=== PATIENT | female | born 1965 | race Caucasian/White ===

== ENCOUNTER 2017-12-15 14:53 | Emergency (ER) | payer OTHER, SELFPAY ==
[2017-12-15 14:55] VITALS: BP 161/92; PULSE 84; RESP 18; TEMP 36.3; O2SAT 98; BMI 40.0
--- NOTE | 2017-12-15 15:32 | ED.VISSUMM ---
- ER Visit Summary Date of Service: 12/15/17 Chief Complaint: Right lateral mid back pain History of Present Illness: The patient is a 52 F past medical history of borderline diabetes and hypothyroidism. Patient never had any back surgery. Today was working as a [email or web address] they were pushing a cleaning linen cart that was full of cleaning and laundry. It started to tip over and they were trying to write it and she injured her right lateral mid back. No prior back history of back surgery. She states she felt fine before this. Several hours later she started having tightness and pain in her right lateral back. Worse with movement. She denies any chest or abdominal pain. She denies any other symptoms. No weakness in her upper or lower extremities nor any numbness. Physical Examination: Middle-aged female vital signs are stable afebrile. HEENT exam unremarkable. Neck nontender. Lungs clear to auscultation bilaterally. Heart regular rate and rhythm no murmur. Chest nontender. Abdomen obese but soft and nontender. Normal bowel sounds no peritoneal signs. Moving all 4 extremities. Neurovascular intact. 5 out of 5 credit verification clerk strength. Dorsi plantar flexion intact. Normal motor strength and sensation of both lower extremities. No cauda equina or saddle anesthesia. The cervical, thoracic and lumbar spine nontender. She does have reproducible soft tissue tenderness of the right lateral parathoracic musculature with associated muscle spasm. There are no signs of bruising or trauma. Neurologically she is awake alert with no focal motor or sensory deficits. Normal motor strength and sensation about the upper and lower extremities. Test Results: None Emergency Department Course and Treatment: Patient will be treated with IM Toradol and 1 p.o. Valium for muscle relaxation. She has a ride home. Treatment Plan: Motrin for pain and inflammation. Valium for muscle relaxation. Disposition: Discharge Impression: Right mid back strain with muscle spasm This note was generated with [employer] dictation software. It may contain incorrect words, spelling, and punctuation that were not noted in review of the chart prior to signing ED Disposition - Plan for ED Patient: Chief Complaint: Back Referrals: Natacha Clay MD [Primary Care Provider] -
[2017-12-15] MEDS: diazePAM 5 MG Tablet 10 MG PO (15:39)
[2017-12-15] MEDS: Ketorolac 60 MG/2 ML Vial IM (15:39)
--- NOTE | 2017-12-15 15:41 | ED.DCSUM_ITS ---
- ER Visit Summary Date of Service: 12/15/17 Chief Complaint: Right lateral mid back pain History of Present Illness: The patient is a 52 F past medical history of borderline diabetes and hypothyroidism. Patient never had any back surgery. Today was working as a [employer] they were pushing a cleaning linen cart that was full of cleaning and laundry. It started to tip over and they were trying to write it and she injured her right lateral mid back. No prior back history of back surgery. She states she felt fine before this. Several hours later she started having tightness and pain in her right lateral back. Worse with movement. She denies any chest or abdominal pain. She denies any other symptoms. No weakness in her upper or lower extremities nor any numbness. Physical Examination: Middle-aged female vital signs are stable afebrile. HEENT exam unremarkable. Neck nontender. Lungs clear to auscultation bilaterally. Heart regular rate and rhythm no murmur. Chest nontender. Abdomen obese but soft and nontender. Normal bowel sounds no peritoneal signs. Moving all 4 extremities. Neurovascular intact. 5 out of 5 rod finisher strength. Dorsi plantar flexion intact. Normal motor strength and sensation of both lower extremities. No cauda equina or saddle anesthesia. The cervical, thoracic and lumbar spine nontender. She does have reproducible soft tissue tenderness of the right lateral parathoracic musculature with associated muscle spasm. There are no signs of bruising or trauma. Neurologically she is awake alert with no focal motor or sensory deficits. Normal motor strength and sensation about the upper and lower extremities. Test Results: None Emergency Department Course and Treatment: Patient will be treated with IM Toradol and 1 p.o. Valium for muscle relaxation. She has a ride home. Treatment Plan: Motrin for pain and inflammation. Valium for muscle relaxation. Disposition: Discharge Impression: Right mid back strain with muscle spasm This note was generated with [employer] dictation software. It may contain incorrect words, spelling, and punctuation that were not noted in review of the chart prior to signing ED Disposition - Plan for ED Patient: Chief Complaint: Back Referrals: Natacha Clay MD [Primary Care Provider] -
--- NOTE | 2017-12-15 15:41 | ED.DEP ---
ED Disposition - Plan for ED Patient: Disposition: Home or Assisted Living Chief Complaint: Back Instructions: ED Spasm Muscle Prescriptions: Diazepam [Valium] 10 mg PO TID #15 tab Referrals: Natacha Clay MD [Primary Care Provider] - As Needed [facility] [GROUP OF PHYSICIANS] - As soon as possible Additional Instructions: Hot shower, warm bath, and massage for back spasm. Valium for muscle spasm. Motrin for pain and inflammation. Light duty until pain-free.
[2017-12-15 16:39] VITALS: BP 139/79; PULSE 84; RESP 18
== END 2017-12-15 16:30 | disposition home or self-care (01) ==
PROVIDERS: Emergency Provider Emergency Medicine; Family Provider Internal Medicine; PCP Internal Medicine
DX: S29.012A Strain of muscle and tendon of back wall of thorax, initial encounter (principal); M62.830 Muscle spasm of back; X50.1XXA Overexertion from prolonged static or awkward postures, initial encounter; Y93.E2 Activity, laundry; Y92.214 College as the place of occurrence of the external cause; Y99.0 Civilian activity done for income or pay; E03.9 Hypothyroidism, unspecified; Z79.899 Other long term (current) drug therapy
CPT/HCPCS: 96374; 99284

== ENCOUNTER 2020-05-25 09:53 | Emergency (ER) | payer OTHER, SELFPAY ==
[2020-05-25 09:53] VITALS: BP 155/100; PULSE 86; RESP 15; TEMP 36.3; O2SAT 99; BMI 35.6
--- NOTE | 2020-05-25 10:17 | ED.VISSUMM ---
- ER Visit Summary Date of Service: 05/25/20 Chief Complaint: Nearly passed out at work due to right lower back pain History of Present Illness: The patient is a 54 F history of hypothyroidism and prediabetes. Prior appendectomy, cholecystectomy and hysterectomy. Patient's had a cervical fusion but no low back surgery. States that for the last month she has had low back pain. Primary care physician put her on a muscle relaxant and a Medrol Dosepak. Said initially got better but she does a lot of bending, stooping and lifting at work and she aggravated over the last couple weeks. States today she got an episode of the pain with movement and she felt like she was going to pass out. No loss of conscious. And so that was only for a brief episode. She denies any abdominal pain. She denies any weakness or numbness to her lower extremities. No bowel or bladder incontinence. No dysuria. It is worse with movement and primarily lifting her right leg. Physical Examination: Middle-aged female. Sitting she seemed reasonably comfortable when she got up to transfer the bed and lay down it aggravated her pain. Vital signs are stable afebrile. H EENT exam unremarkable. Neck nontender. Lungs clear to auscultation bilaterally. Heart regular rhythm no murmur. Rate about 85. Abdomen soft nontender normal bowel sounds no peritoneal signs. No pulsatile mass. Patient is moving all 4 extremities. They are neurovascularly intact. She has 5-5 inside sales recruiter strength. Dorsi and plantar flexion are intact. She has normal sensation lower extremities. No cauda equina. No saddle anesthesia. Negative straight leg raise on the left but positive straight leg raise on the right at 15 to 30 degrees. Back exam spine is nontender she has exquisite tenderness to her right SI joint. Left is nontender. Neurologically she is awake and alert again with no focal motor or sensory deficits. No cauda equina. Test Results: None Emergency Department Course and Treatment: Patient has a ride home. She will be given 2 [place] here for pain. Placed on a Medrol Dosepak. Use anti-inflammatories for pain. Treatment Plan: Medrol Dosepak. Motrin as needed. Follow-up with your doctor if not improving. Disposition: Discharge Impression: Acute right-sided sciatica Near syncope secondary to back pain This note was generated with [employer] software. It may contain incorrect words, spelling, and punctuation that were not noted in review of the chart prior to signing ED Disposition - Plan for ED Patient: Referrals: Natacha Clay MD [Primary Care Provider] -
--- NOTE | 2020-05-25 10:20 | ED.DEP ---
ED Disposition - Plan for ED Patient: Disposition: Home or Assisted Living Instructions: ED Sciatica Prescriptions: MethylPREDNISolone DosePak [Medrol DosePak] 4 mg PO UD #1 box Prescription Printed Referrals: Natacha Clay MD [Primary Care Provider] - 1 Week if not improving Additional Instructions: Ice to right sciatica. Motrin for pain and inflammation as needed. Medrol Dosepak. Follow-up with your doctor if not improving. Return to the emergency department if you develop bowel or bladder incontinence or weakness in your lower extremities. Lifting restrictions and bending restrictions at work.
[2020-05-25] MEDS: HYDROcodone Bitartrate/Apap 5/325 Tablet PO (10:36)
[2020-05-25 10:37] VITALS: PULSE 89; O2SAT 99
== END 2020-05-25 10:46 | disposition home or self-care (01) ==
LOC: ED 10:35
PROVIDERS: Emergency Provider Emergency Medicine; PCP Internal Medicine
DX: M54.41 Lumbago with sciatica, right side (principal); R55 Syncope and collapse; E03.9 Hypothyroidism, unspecified; Z98.1 Arthrodesis status
CPT/HCPCS: 99282

== ENCOUNTER 2022-05-25 14:24 | Emergency (ER) | payer BC, SELFPAY ==
[2022-05-25 14:28] VITALS: BP 143/99; PULSE 78; RESP 16; TEMP 36.2; O2SAT 100; BMI 32.1
[2022-05-25 14:32] VITALS: BP 130/86; PULSE 68; RESP 16; TEMP 36.8; O2SAT 99
--- NOTE | 2022-05-25 14:36 | RAD_ITS ---
INDICATION: FEVER EXAMINATION/TECHNIQUE: X-RAY - XR Chest 1 View COMPARISON: None. FINDINGS: LINES/DEVICES: None. LUNGS: No consolidation, edema or effusion. No pneumothorax. MEDIASTINUM AND CARDIOVASCULAR STRUCTURES: Cardiac silhouette not enlarged. Central airways and mediastinal contour are unremarkable. BONES AND SOFT TISSUES: Unremarkable. RAD/Chest 1 View IMPRESSION: No radiographic evidence of acute cardiopulmonary disease. Electronically Signed: Caro Ferris MD at 16:14 EST Reading Location ID and State: [id number] / Tel , Service support ,
[2022-05-25 15:28] LABS: Absolute Lymphocyte Count 2.44 X10^3/uL (0.83-4.51); Absolute Neutrophil Count 5.5 X10^3/uL (2.0-7.7); Basophil# 0.07 X10^3/uL; Basophil% 0.8 % (0-1); Eosinophil# 0.22 X10^3/uL; Eosinophils% 2.5 % (0-5); Hematocrit 44.6 % (37-47); Hemoglobin 14.9 g/dL (12.0-15.0); Lymphocyte # 2.44 X10^3/ul (0.83-4.51); Lymphocyte % 27.2 % (19-41); Mean Corp Hgb Conc 33.4 g/dL (32-36); Mean Corpuscular Hgb 29.9 pg (27.0-32.0); Mean Corpuscular Volume 89.6 fL (81-99); Mean Platelet Vol. 10.8 fl (6.2-12.0); Monocyte# 0.71 X10^3/uL; Monocyte% 7.9 % (0-10); NRBC Flagged by Analyzer 0 % (0-5); Neutrophil # 5.51 X10^3/uL (2.7-7.7); Neutrophil % 61.4 % (47-70); Platelet Count 286 K/mm3 (150-450); RBC Distribution Width CV 11.9 % (11.6-14.6); RBC Distribution Width SD 38.9 fl (35.1-43.9); Red Blood Count 4.98 M/mm3 (4.2-5.4)
[2022-05-25 15:32] VITALS: BP 128/84; PULSE 72; RESP 18; TEMP 36.7; O2SAT 98
[2022-05-25 15:55] LABS: Anion Gap 10 (5-15); BUN 16 mg/dL (7-18); BUN/Creat Ratio 20.3 RATIO (10-20); Calcium,Total 9.4 mg/dL (8.5-10.1); Chloride 105 mmol/L (98-107); Creatinine, Serum 0.79 mg/dL (0.55-1.02); EST Glomerular Filtration Rate 80 mL/min (>60); Est Glom Filt Rate - Afr Amer 97 mL/min (>60); Estimated Creatinine Clearance 64.39 ml/min; Glucose 109 mg/dL (74-106); Potassium 3.7 mmol/L (3.5-5.1); Sodium Level 139 mmol/L (136-145)
[2022-05-25 16:32] VITALS: BP 132/86; PULSE 80; RESP 16; TEMP 36.7; O2SAT 99
--- NOTE | 2022-05-25 16:53 | EX.ED.DYSGE1 ---
HPI History of Present Illness Chief Complaint: General Illness Informant: patient Onset/Context/Timing Onset: Yesterday Context: Gradual Onset Timing: Continuous Quality: Lightheaded, heaviness, aching Location: Generalized Worsened by: Movement, ambulation Relieved by: Nothing Narrative Narrative: Presents with body aches, fatigue, and lightheadedness that has been getting worse since yesterday. Patient states it is gradually getting worse. Patient states she feels lightheaded. Patient states she feels heavy all over. Patient also admits to some generalized aching. Patient states her symptoms are worse with ambulation and movement of her legs. Patient admits to subjective fevers and subjective chills. Patient admits to a cough and some slight shortness of breath. Patient admits to nausea but denies any vomiting. [facility] Medical History Chronic neck and back pain shoulder pain Home Medications levothyroxine 75 mcg tablet 75 mcg PO DAILY thyroid 12/16/15 [History Last Taken 01/05/17] cholecalciferol (vitamin D3) 50 mcg (2,000 unit) tablet 50 mcg PO DAILY 05/25/22 [History Last Taken Unknown] fexofenadine 60 mg tablet 1 mg PO DAILY 05/25/22 [History Last Taken Unknown] Allergy/AdvReac Type Severity Reaction Status Date / Time sulfamethoxazole Allergy Unknown Unknown Verified 05/25/22 14:26 [From Bactrim] trimethoprim [From Bactrim] Allergy Unknown Unknown Verified 05/25/22 14:26 piperacillin [From Zosyn] AdvReac Mild Rash Verified 05/25/22 14:26 tazobactam [From Zosyn] AdvReac Mild Rash Verified 05/25/22 14:26 Social History Smoking Status: Never smoker ROS ROS ED Constitutional Constitutional ED: Reports fever(s) and subjective; Denies chills Eyes Eyes: Denies blurry vision or change in vision ENT ENT ED: Denies rhinorrhea or sore throat Cardiovascular Cardiovascular: Denies chest pain or palpitations Respiratory/Chest Respiratory/Chest: Reports cough and dyspnea Gastrointestinal Gastrointestinal: Reports nausea; Denies vomiting Genitourinary Genitourinary ED: Denies dysuria or hematuria Musculoskeletal Musculoskeletal: Reports back pain and neck pain Integumentary Denies abscess or rash Neurologic Neurologic: Reports headache(s); Denies weakness Allergic/Immunologic Allergic/Immunologic ED: Denies mouth swelling or urticaria EXAM Physical Exam Const Vital Signs: 05/25/22 14:28 05/25/22 16:49 05/25/22 14:32 Temperature 97.2 F L 98.3 F Temperature Source Temporal Temporal Pulse Rate 78 68 Respiratory Rate 16 16 Respiratory Effort Normal Non-Labored Respiratory Pattern Normal Blood Pressure 143/99 H 130/86 H Blood Pressure Mean 113 100 Pulse Ox 100 99 Oxygen Delivery Method Room Air Room Air 05/25/22 15:32 05/25/22 16:32 05/25/22 17:00 Temperature 98.0 F 98.1 F 98.3 F Temperature Source Temporal Temporal Temporal Pulse Rate 72 80 66 Respiratory Rate 18 16 18 Respiratory Effort Respiratory Pattern Blood Pressure 128/84 H 132/86 H 146/76 H Blood Pressure Mean 98 101 99 Pulse Ox 98 99 98 Oxygen Delivery Method Room Air Room Air Room Air 05/25/22 18:04 Temperature Temperature Source Pulse Rate Respiratory Rate Respiratory Effort Respiratory Pattern Blood Pressure 149/82 H Blood Pressure Mean 104 Pulse Ox 99 Oxygen Delivery Method Room Air Positive well nourished and well developed General Appearance ED: well developed and NAD HEENT Reports moist mucous membranes Neck supple and no JVD Resp normal respiratory effort and clear to auscultation bilaterally Cardio regular rate, regular rhythm and no murmurs GI normal to inspection, nondistended, normoactive bowel sounds and non-tender Palpation: soft Extremity normal to inspection General Extremety ED: Negative for edema or tenderness General Extremity: Negative for edema Neuro oriented x3, CN's II-XII intact bilaterally and no sensory deficits noted Sensorium / Orientation: alert Motor Exam: strength 5/5 throughout Psych mental status grossly normal Skin no rashes or lesions noted MDM MDM MDM Narrative Medical decision making narrative: Patient was given IV fluids. CBC was within normal limits. Basic metabolic profile was within normal limits. Portable 1 view chest x-ray was obtained. On my interpretation, lung waddell are clear. There is normal cardiac silhouette. Bony thorax is normal. There is no acute process noted. Radiologist also interpreted the x-ray and agrees. COVID-19 rapid antigen was obtained and was negative. Influenza A and influenza B rapid antigens were obtained and were negative. Patient is feeling better on reevaluation. Patient was advised of her findings. Patient was instructed to drink plenty of fluids. Patient was instructed to take Tylenol or ibuprofen as needed for any pain or fevers. Patient was instructed to follow-up with her primary care physician in 5 to 7 days. Patient understood and was agreeable with the plan. All questions were answered. Lab Data Attestation: I reviewed the patient's lab results. Labs: Laboratory Results - last 24 hr 05/25/22 05/25/22 15:22 15:22 WBC 9.0 RBC 4.98 Hgb 14.9 Hct 44.6 MCV 89.6 MCH 29.9 MCHC 33.4 RDW Std Deviation 38.9 RDW Coeff of Andrey 11.9 Plt Count 286 MPV 10.8 Immature Gran % (Auto) 0.200 Neut % (Auto) 61.4 Lymph % (Auto) 27.2 Clinch % (Auto) 7.9 Eos % (Auto) 2.5 Baso % (Auto) 0.8 Absolute Neuts (auto) 5.5 Absolute Lymphs (auto) 2.44 Nucleated RBC % 0 Sodium 139 Potassium 3.7 Chloride 105 Carbon Dioxide 24.0 Anion Gap 10 BUN 16 Creatinine 0.79 Estim Creat Clear Calc 64.39 Est GFR (MDRD) Af Amer 97 Est GFR (MDRD) Non-Af 80 BUN/Creatinine Ratio 20.3 H Glucose 109 H Calcium 9.4 Radiography Chest X-Ray - ED: 1 View, Read by ED Physician, Read by Radiologist and No Acute Disease Diagnostic Testing: Clinical Impression(s) from Imaging Studies Chest X-Ray 05/25/22 14:36 IMPRESSION: No radiographic evidence of acute cardiopulmonary disease. Electronically Signed: Caro Ferris MD at 16:14 EST Reading Location ID and State: [id number] / Tel , Service support , Discharge Plan Triage Chief Complaint: General Illness ED Provider: Gordo Lucas Dx/Rx/DC Orders Clinical Impression: Viral illness Instructions: ED Viral Syndrome (Adult) Prescriptions: No Action levothyroxine 75 MCG tablet 75 mcg PO DAILY fexofenadine 60 mg tablet 1 mg PO DAILY Label Comments: TAKE 1 TABLET BY MOUTH ONCE DAILY cholecalciferol (vitamin D3) 50 mcg (2,000 unit) tablet 50 mcg PO DAILY Label Comments: TAKE 1 TABLET BY MOUTH ONCE DAILY Stand Alone Forms: ED Work / School Excuse Primary Care Provider: Natacha Clay Referrals: Natacha Clay MD [Primary Care Provider] - 5-7 Days Disposition Disposition: Home, Self Care
[2022-05-25 17:00] VITALS: BP 146/76; PULSE 66; RESP 18; TEMP 36.8; O2SAT 98
[2022-05-25] MEDS: Ondansetron 4 MG/2 ML Vial IV (17:02)
[2022-05-25] MEDS: Morphine 4 MG/ML Syringe IV (17:02)
[2022-05-25] MEDS: 0.9% Normal Saline 1,000 ML 1000 ML IV ×2 (17:02→17:56)
[2022-05-25 18:04] VITALS: BP 149/82; O2SAT 99
== END 2022-05-25 19:44 | disposition home or self-care (01) ==
PROVIDERS: Emergency Provider Emergency Medicine; PCP Internal Medicine; Visit Provider Emergency Medicine
DX: B34.9 Viral infection, unspecified (principal); R11.0 Nausea; R06.02 Shortness of breath; R42 Dizziness and giddiness; G89.29 Other chronic pain; M54.9 Dorsalgia, unspecified; M54.2 Cervicalgia; R05.9 Cough, unspecified; Z20.822 Contact with and (suspected) exposure to COVID-19; Z79.890 Hormone replacement therapy; Z79.899 Other long term (current) drug therapy
CPT/HCPCS: 71045; 80048; 85025; 87428; 87804; 96361; 96374; 96375; 99283; J7030; A4216; J2405

== ENCOUNTER 2022-11-22 17:00 | Outpatient (RCR) | payer BC, SELFPAY ==
--- NOTE | 2022-11-09 12:28 | HP.PTEVAL_ITS ---
Patient's Visit Information LILLIAN FRIED is a 57 year old F referred to Physical Therapy by Tayo Pearce PA-C with a diagnosis of RIGHT KNEE TENDONITIS ,UNILATERALPRIMARY OA RIGHT KNEE. Date of Evaluation: 11/09/22 Physical Therapist: Rob Bunn, PT, Cert MDT, OCS - Visit Plan Frequency: 2-3x /Week Duration: 4-6 Weeks Plan: PT INTERVTIONS ROM/FLEXABLITY RIGHT KNEE ,STRENGTHENING EX'S QUADS/HAMS/HIP/,FUNCTIONAL STRENGTHGENING AND MODALTIES FOR PAIN - Subjective This 57 y/o female presents to physical therapy with right knee pain. Patient injury September noticed pain moving a crate and felt pop and made symptoms with patient unable to ambulate for 3 days. But prior to the injury had pain possible using kneeling walker due to surgery last year Jun [address] Trujillo orthopedics MRI and x-rays showed slight meniscus tear and DJD. Patient had edema in knee . Aggravating factors unable to squat/kneel ,difficulty with steps one step at time. Pain worsens with walking/standing. Dr hull patient on leave from work return to date is October 27. Pain located medial knee and superior knee. Alleviating heat. Patient denies paresthesia/ tingling. Pain doesnt affects sleeping. Patient goals to decrease pain. Patient pain and condition affects QOL and job demnads. SOCIAL: . VOACTION: [employer] - Pain Right Knee Pain Intensity (Out of 10): 3 Pain Intensity Range: 10 - Objective POSTURE: mild forward posture hip/knee flexed right. NEURO: intact denies paresthesia/tingling. GAIT: reciprocal pattern with antalgic gait right with decrease stance with slow denis. PALAPTION: medial/lateral joint line. EDEMA: mil effusion knee. AROM: 5-90 degrees supine knee flexion. MMT: ( peak force) quads 14.4 ,hamstrings 15.6.hip flexion 19.9 ,hip abd 12,2. STAIRS: one step at time with rail. MMT: - Special Tests R Knee Saqib - Meniscus: Positive R Knee Yolie - ACL: Negative R Knee Valgus - MCL: Positive R Knee Varus - LCL: Positive - Balance/Special Test Scores Lower Extremity Functional Score: 29 - Goals Goal 1:: Patient to be I with HEP for right knee Goal Time Frame: 4-6 Weeks Goal 2:: Patient to demonstrate 50% improvement with increase function and less pain Goal Time Frame: 4-6 Weeks Goal 3:: Patient improve AROM right knee supine flexion to 0-115 degrees Goal Time Frame: 4-6 Weeks Goal 4:: Patient increase peak force MMT by 5-10 quads/hams to improve function and gait Goal Time Frame: 4-6 Weeks Goal 5:: Patient improve LFES score by 5-10 points to improve function and QOL Goal Time Frame: 4-6 Weeks Goal 6:: Patient to normalize gait - Rehabilitation Potential Physical Therapy Diagnosis: This patient injury to right knee pain with slight meniscus tear ,DJD with decrease ROM ,weakness ,antalgic gait and unable to RTW and affects housework tasks and ADL's thus benefit from skilled PT Rehabilitation Potential: Good - Anticipated Interventions Patient/Client Instruction: Educate patient on: Condition, Plan of Care For the Purpose of:: To decrease pain, To increase ROM, To improve muscle performance and motor function, To increase tolerance to activity/condition/position, To improve ability of physical actions for home/community/work/leisure, To improve gait and locomotor functions, To improve health of tissue, To decrease soft tissue restriction, To increase flexibility/ROM, To reduce risk of recurrence, To improve ability to perform tasks related to life management Therapeutic Exercise to Include: Strength training, Endurance training, Flexibilty training, Gait and locomotor training, Passive ROM, Active ROM For the Purpose of:: To decrease pain, To increase ROM, To improve muscle performance and motor function, To increase tolerance to a ctivity/condition/position, To improve ability of physical actions for home/community/work/leisure, To improve health of tissue, To decrease soft tissue restriction, To increase flexibility/ROM TENS: Yes IF ES: Yes Cryotherapy (ice pack, ice massage): Yes Thermo therapy (hot pack): Yes Ultrasound (thermal/non thermal): Yes For the Purpose of:: To decrease pain, To decrease swelling/inflammation, To increase ROM, To improve health of tissue, To decrease soft tissue restriction Thank you for the opportunity to evaluate your patient. For Medicare and Medicare HMO plans, please review the plan of care and approve it. It will need to be FAXED BACK to us at [phone] for Medicare purposes. For Medicare only, by signing this I certify the plan of care. Please let me know if there are questions or concerns regarding this plan of care. Physician Signature: Date:
--- NOTE | 2023-02-20 11:02 | HP.PT.NRP ---
Patient Information Patient Information: LILLIAN FRIED was seen in my office for initial evaluation on 11/09/22. The following Plan of Care was established for this patient: POC Established Initial Frequency: 2-3x /Week Initial Duration: 4-6 Weeks Anticipated Interventions Patient/Client Instruction: Educate patient on: Condition and Plan of Care For the Purpose of:: To decrease pain, To increase ROM, To improve muscle performance and motor function, To increase tolerance to activity/condition/position, To improve ability of physical actions for home/community/work/leisure, To improve gait and locomotor functions, To improve health of tissue, To decrease soft tissue restriction, To increase flexibility/ROM, To reduce risk of recurrence and To improve ability to perform tasks related to life management Therapeutic Exercise to Include: Strength training, Endurance training, Flexibilty training, Gait and locomotor training, Passive ROM and Active ROM For the Purpose of:: To decrease pain, To increase ROM, To improve muscle performance and motor function, To increase tolerance to activity/condition/position, To improve ability of physical actions for home/community/work/leisure, To improve health of tissue, To decrease soft tissue restriction and To increase flexibility/ROM TENS: Yes IF ES: Yes Cryotherapy (ice pack, ice massage): Yes Thermo therapy (hot pack): Yes Ultrasound (thermal/non thermal): Yes For the Purpose of:: To decrease pain, To decrease swelling/inflammation, To increase ROM, To improve health of tissue and To decrease soft tissue restriction Last Seen Last Seen: This patient was last seen in our office . Pertinent comments regarding their Physical therapy will appear below: Patient seen for PT for knee pain ,had MRI then surgery d/c At this point I will be discontinuing this patient from physical therapy. I would be happy to see this patient again in the future if found appropriate by the physician. Thank you! Rob Bunn, PT, Cert MDT, OCS Balance/Gait/Functional tests Balance/Special Test Scores Lower Extremity Functional Score: 29
== END 2022-11-22 19:00 | disposition home or self-care (01) ==
LOC: PT 17:00
PROVIDERS: PCP Internal Medicine; Referring Provider Physician Assistant; Visit Provider Physician Assistant
DX: M76.51 Patellar tendinitis, right knee (principal); M17.11 Unilateral primary osteoarthritis, right knee
CPT/HCPCS: 97014; 97110; 97162; G0283

== ENCOUNTER → 2022-11-30 | Outpatient (CLI) | payer BC, SELFPAY ==
--- NOTE | 2022-11-30 11:55 | EKG12_ITS ---
Test Reason : PRE OP Blood Pressure : / mmHG Vent. Rate : 065 BPM Atrial Rate : 065 BPM P-R Int : 144 ms QRS Dur : 064 ms QT Int : 382 ms P-R-T Axes : 071 -09 -01 degrees QTc Int : 397 ms Normal sinus rhythm Normal ECG Confirmed by DAVON MANN, PRISCILA ([id number]), legal editor JEANCARLOS JAMISON ([id number]) on 12/01/2022 8:12:04 AM Referred By: Richie Michelle Confirmed By:PRISCILA MAYS MD
[2022-11-30 12:33] LABS: Absolute Lymphocyte Count 2.26 X10^3/uL (0.83-4.51); Absolute Neutrophil Count 4.5 X10^3/uL (2.0-7.7); Basophil# 0.07 X10^3/uL; Basophil% 0.9 % (0-1); Eosinophils% 1.3 % (0-5); Hematocrit 42.6 % (37-47); Hemoglobin 14.3 g/dL (12.0-15.0); Lymphocyte # 2.26 X10^3/ul (0.83-4.51); Lymphocyte % 29.8 % (19-41); Mean Corp Hgb Conc 33.6 g/dL (32-36); Mean Corpuscular Volume 92.2 fL (81-99); Mean Platelet Vol. 10.7 fl (6.2-12.0); Monocyte# 0.65 X10^3/uL; Monocyte% 8.6 % (0-10); NRBC Flagged by Analyzer 0 % (0-5); Neutrophil # 4.46 X10^3/uL (2.7-7.7); Neutrophil % 58.9 % (47-70); Platelet Count 282 K/mm3 (150-450); RBC Distribution Width CV 12.2 % (11.6-14.6); RBC Distribution Width SD 41.2 fl (35.1-43.9); Red Blood Count 4.62 M/mm3 (4.2-5.4); White Blood Count 7.6 K/mm3 (4.4-11.0)
[2022-11-30 13:01] LABS: Anion Gap 7 (5-15); BUN 18 mg/dL (7-18); BUN/Creat Ratio 24.2 RATIO (10-20); Calcium,Total 9.3 mg/dL (8.5-10.1); Chloride 105 mmol/L (98-107); Creatinine, Serum 0.74 mg/dL (0.55-1.02); EST Glomerular Filtration Rate 86 mL/min (>60); Est Glom Filt Rate - Afr Amer 104 mL/min (>60); Glucose 86 mg/dL (74-106); Sodium Level 139 mmol/L (136-145)
== END | disposition home or self-care (01) ==
LOC: PSN 11:53
PROVIDERS: PCP Internal Medicine; Referring Provider Student in an Organized Health Care Education/Training Program; Visit Provider Student in an Organized Health Care Education/Training Program
DX: Z01.818 Encounter for other preprocedural examination (principal)
CPT/HCPCS: 36415; 80048; 85025; 93005

== ENCOUNTER 2023-02-09 12:30 | Outpatient (RCR) | payer BC, SELFPAY ==
--- NOTE | 2023-01-04 14:55 | HP.PTEVAL ---
Patient's Visit Information Visit Information Visit Information: LILLIAN FRIED is a 57 year old F referred to Physical Therapy by Dr. Richie Michelle, DO with a diagnosis of Right Meniscal Repair 12/06/22. Date of Evaluation: 01/04/23 Physical Therapist: Anita Mcarthur DPT Visit Plan Frequency: 2-3x /Week Duration: 3 Months Plan: Hold until WB then 2-3x a week for 4-6 weeks- Meniscal Repair. HEP Given IE: bolster extn supine and seated, heel slide seated and supine, quad set and TKE- educated on brace mgmt Subjective Subjective: Been off work since May- right foot surgery fusion of great toe Dr. Johnson- went back to work for 2 weeks and torn meniscus. Dr. Michelle did a meniscal repair December 06, 2022. She has been non weightbearing since. She went and saw him last week and he told her to continue to be NWB and start proacting the bend and start PT. She goes back to see him at the end of the month. He told her to try to bend it to 90 degrees. She has the brace unlocked when she is sitting and also takes it off when she is sitting as well. When she is up and moving she has it locked into extension. Sleep she still has it locked. She is okay as long as she is moving it slowly. Worst in the last 48 hours: 3/10 achy and more uncomfortable. Best: 0/10 Eases: ice, elevation and Tylenol. She is doing straight leg raises and working on bending it when sitting. No N/T in the toes but she has issues with her feet so nothing from this issue. Sleep: doesn't sleep well anyways- but thats not new. 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 PMHx: right foot surgery x 2 Meds: thyroid, weight loss medication Objective Objective: Posture: fair throughout Gait NWB- compliant with axillary crutches Girth: 6 above: 51.5 cm Patella: 38 cm ROM: 10-65 degrees Palpation: tender along medial and lateral joint lines Strength: Core: fair, Hip: 4+/5, Knee: 4/5 in available range, Ankle: 5/5 Observation: incision healing well No standing activities tested due to WB restrictions- more testing as restrictions lifted Balance/Special Test Scores Lower Extremity Functional Score: 17 Goals Goal 1:: Patient will be I with HEP and progression Goal Time Frame: 4-6 Weeks Goal 2:: Patient will ambulate >300 feet with a normalized gait pattern Goal Time Frame: 4-6 Weeks Goal 3:: Patient will demo 0-125 degrees of ROM in the right knee Goal Time Frame: 4-6 Weeks Goal 4:: Patient will SLS for 30 sec without LOB Goal Time Frame: 4-6 Weeks Goal 5:: Patient will asc/desc 8 stairs recip with no HR Goal Time Frame: 4-6 Weeks Goal 6:: Patient will report 80% improvement Goal Time Frame: 4-6 Weeks Rehabilitation Potential Physical Therapy Diagnosis: Patient presents s/p Right Meniscal Repair 12/06/22- she has decreased LE ROM, strength, flex and muscular endurance leading to poor posture and increased pain and inability to perform ADL's. Rehabilitation Potential: Good Anticipated Interventions Patient/Client Instruction: Educate patient on: Benefits of Fitness Program Therapeutic Exercise to Include: Strength training, Endurance training, Balance training, Coordination, Agility training, Body mechanics, Postural training, Flexibilty training, Gait and locomotor training, Neuromotor development, Dynamic Lumbar Stabilization and Scapular Strength/Stabilization TENS: Yes Cryotherapy (ice pack, ice massage): Yes Thermo therapy (hot pack): Yes Text: Thank you for the opportunity to evaluate your patient. For Medicare and Medicare HMO plans, please review the plan of care and approve it. It will need to be FAXED BACK to us at [phone] for Medicare purposes. For Medicare only, by signing this I certify the plan of care. Please let me know if there are questions or concerns regarding this plan of care. Physician Signature: Date:
--- NOTE | 2023-01-22 17:26 | HP.PTREVAL ---
Re-Evaluation Intro: Dr. Richie Michelle, DO, It has been my pleasure to treat LILLIAN FRIED over the last 2 visits for Right Meniscal Repair 12/06/22. Please see the progress note below for an update on the physical therapy plan of care! Subjective Subjective: Patient reports she just saw the MD before she came today- she saw pictures- she has to wear the brace for another 2-3 weeks. She can start weight bearing and just let pain be her guide. She is off work until at least Mar 05 when she goes back to see Dr. Michelle. She has no pain- it bothers her at night after she has been on it all day- he opened up her brace all the way- but still wants her locked into extension when she is up and moving for another 2-3 weeks. Objective Objective/Function: Posture: fair throughout Gait WBAT with bilateral axillary crutches and brace locked in extn Girth: 6 above: 52 cm Patella: 37.5 cm ROM: 0-95 degrees Palpation: tender along medial and lateral joint lines Strength: Core: fair, Hip: 4+/5, Knee: 4/5 in available range, Ankle: 5/5 Plan Plan Plan: 2-3x a week for 4-6 weeks- Meniscal Repair. HEP Given IE: bolster extn supine and seated, heel slide seated and supine, quad set and TKE- educated on brace mgmt Balance/Gait/Functional tests Balance/Special Test Scores Lower Extremity Functional Score: 25 Goals Goals Goal 1:: Patient will be I with HEP and progression Goal Time Frame: 4-6 Weeks Goal 2:: Patient will ambulate >300 feet with a normalized gait pattern Goal Time Frame: 4-6 Weeks Goal 3:: Patient will demo 0-125 degrees of ROM in the right knee Goal Time Frame: 4-6 Weeks Goal 4:: Patient will SLS for 30 sec without LOB Goal Time Frame: 4-6 Weeks Goal 5:: Patient will asc/desc 8 stairs recip with no HR Goal Time Frame: 4-6 Weeks Goal 6:: Patient will report 80% improvement Goal Time Frame: 4-6 Weeks Anticipated Interventions Anticipated Interventions Patient/Client Instruction: Educate patient on: Benefits of Fitness Program Therapeutic Exercise to Include: Strength training, Endurance training, Balance training, Coordination, Agility training, Body mechanics, Postural training, Flexibilty training, Gait and locomotor training, Neuromotor development, Dynamic Lumbar Stabilization and Scapular Strength/Stabilization TENS: Yes Cryotherapy (ice pack, ice massage): Yes Thermo therapy (hot pack): Yes Re-Evaluation Ending Re-evaluation ending: Please do not hesitate to contact me at [phone] by phone or if you have questions or concerns regarding this new plan of care! Sincerely, GUERRERO HadleyT
--- NOTE | 2023-06-21 09:10 | HP.PT.NRP ---
Patient Information Patient Information: LILLIAN FRIED was seen in my office for initial evaluation on 01/04/23. The following Plan of Care was established for this patient: POC Established Initial Frequency: 2-3x /Week Initial Duration: 3 Months Anticipated Interventions Patient/Client Instruction: Educate patient on: Benefits of Fitness Program Therapeutic Exercise to Include: Strength training, Endurance training, Balance training, Coordination, Agility training, Body mechanics, Postural training, Flexibilty training, Gait and locomotor training, Neuromotor development, Dynamic Lumbar Stabilization and Scapular Strength/Stabilization TENS: Yes Cryotherapy (ice pack, ice massage): Yes Thermo therapy (hot pack): Yes Last Seen Last Seen: This patient was last seen in our office . Pertinent comments regarding their Physical therapy will appear below: Patient has not attended physical therapy in over 4 weeks and is appropriate to continue her home exercise program and be discharged. At this point I will be discontinuing this patient from physical therapy. I would be happy to see this patient again in the future if found appropriate by the physician. Thank you! Anita Mcarthur, GUERREROT Balance/Gait/Functional tests Balance/Special Test Scores Lower Extremity Functional Score: 25
== END 2023-02-09 19:00 | disposition home or self-care (01) ==
LOC: PT 12:30
PROVIDERS: PCP Internal Medicine; Referring Provider Student in an Organized Health Care Education/Training Program; Visit Provider Student in an Organized Health Care Education/Training Program
DX: S83.241D Other tear of medial meniscus, current injury, right knee, subsequent encounter (principal)
CPT/HCPCS: 97110; 97162; 97164

== ENCOUNTER → 2024-01-02 | Outpatient (CLI) | payer OTHER, SELFPAY ==
--- NOTE | 2024-01-02 15:12 | RAD_ITS ---
STUDY: X-RAY - LEFT WRIST REASON FOR EXAM: Female, 58 years old. wrist injury TECHNIQUE: 3 view(s) of the wrist were obtained. COMPARISON: None. FINDINGS: Normal visualized distal radius and ulna. Normal radiocarpal articulation. Normal distal radioulnar articulation. Normal carpal bones. Normal carpal articulations. Normal carpometacarpal articulation of the thumb. Normal second through fifth carpometacarpal articulations. Normal visualized metacarpal bones. The soft tissue structures are unremarkable. RAD/Wrist min 3 Views IMPRESSION: Normal x-ray examination of the wrist. Electronically Signed: Manny Brownlee MD at 15:25 EDT ,
== END | disposition home or self-care (01) ==
LOC: MTRAD 15:12
PROVIDERS: PCP Internal Medicine; Referring Provider Physician Assistant; Visit Provider Physician Assistant
DX: S69.90XA Unspecified injury of unspecified wrist, hand and finger(s), initial encounter (principal); X58.XXXA Exposure to other specified factors, initial encounter
CPT/HCPCS: 73110